=== PATIENT | female | born 1955 | race Caucasian/White ===

== ENCOUNTER 2017-10-22 12:31 | Outpatient (CLI) | payer MEDICAID ==
[2017-10-22] VITALS (23 sets, daily range): BP systolic 82–124; BP diastolic 59–81
[~2017-10-22 12:31] MED LIST: ADV50100 IH; BUPR150T13; CLA10T PO; CLOP75TA35 PO; DULO-31 PO; FOLI-43 PO; GABA-338 PO; HYDR-565 PO; INSU100V13 SQ; LANTUS SUBCUT; LEVA15HF4 IH; LEVO100T46 PO; MOME17SP BOTHNARES; ONDA4TAB6 PO; PROTONIX; ROSU20TA PO; TOP100T PO
== END 2017-10-22 23:59 | disposition home or self-care (01) ==
LOC: CARD DIAG 12:31
PROVIDERS: ATTEND Internal Medicine Cardiovascular Disease
DX: R55 Syncope and collapse (principal)
CPT/HCPCS: 93660

== ENCOUNTER 2018-02-28 14:32 | Emergency (ER) | payer MEDICAID ==
[~2018-02-28] VITALS: Ht 154.9 cm; Wt 68.9 kg
[2018-02-28 14:38] VITALS: BP 126/57
== END 2018-02-28 16:21 | disposition left against medical advice (07) ==
LOC: ER 14:33
DX: S20.211A Contusion of right front wall of thorax, initial encounter (principal); Z53.21 Procedure and treatment not carried out due to patient leaving prior to being seen by health care provider; W17.89XA Other fall from one level to another, initial encounter; Y93.89 Activity, other specified; Y92.89 Other specified places as the place of occurrence of the external cause; Y99.8 Other external cause status

== ENCOUNTER 2018-03-12 13:17 | Emergency (ER) | payer MEDICAID ==
[~2018-03-12] VITALS: Ht 154.9 cm; Wt 68.2 kg
[2018-03-12 13:54] LABS: BASOPHILS # (AUTO) 0.1 X10'3 (0-0.2); BASOPHILS % (AUTO) 0.9 % (0-1); EOSINOPHILS # (AUTO) 0.5 X10'3 (0-0.9); EOSINOPHILS % (AUTO) 4.4 % (0-6); HEMATOCRIT 45.4 % (35.0-45.0); HEMOGLOBIN 15.1 g/dl (12.0-16.0); LYMPHOCYTES # (AUTO) 3.4 X10'3 (1.1-4.8); MEAN CORPUSCULAR HEMOGLOBIN 27.9 PG (27.0-31.0); MEAN CORPUSCULAR HGB CONC 33.3 % (33.0-36.5); MEAN CORPUSCULAR VOLUME 83.6 FL (78-98); MEAN PLATELET VOLUME 8.3 FL (7.4-10.4); MONOCYTES # (AUTO) 0.8 X10'3 (0-0.9); MONOCYTES % (AUTO) 7.5 % (2-12); NEUTROPHILS # (AUTO) 5.6 X10'3 (1.8-7.7); NEUTROPHILS % (AUTO) 54.2 % (42-75); PLATELET COUNT 289 X10'3 (140-440); RED BLOOD COUNT 5.43 X10'6 (4.20-5.60); RED CELL DISTRIBUTION WIDTH 14.4 % (11.5-14.5); WHITE BLOOD COUNT 10.3 X10'3 (4.5-11.0)
[2018-03-12] MEDS ORDERED: ketorolac trometh. 30mg/ml inj. IM ONE (13:55)
[2018-03-12] MEDS ORDERED: oxyCODONE/APAP 10/325mg tablet PO ONE ×2 (13:55→14:15)
[2018-03-12 14:04] LABS: PARTIAL THROMBOPLASTIN TIME 26 SECONDS (22-32); PROTHROMBIN TIME 10.4 SECONDS (9.0-12.0)
[2018-03-12 14:08] LABS: ALANINE AMINOTRANSFERASE 15 U/L (12-78); ALBUMIN 3.8 G/DL (3.4-5.0); ALBUMIN/GLOBULIN RATIO 0.9 (1.1-1.5); ALKALINE PHOSPHATASE 131 IU/L (46-116); ANION GAP 10 (8-16); ASPARTATE AMINO TRANSFERASE 14 U/L (10-37); BILIRUBIN,TOTAL 0.5 MG/DL (0.1-1.0); BLOOD UREA NITROGEN 10 MG/DL (7-18); BUN/CREATININE RATIO 7.6 (6.6-38.0); CALCIUM 9.3 MG/DL (8.5-10.1); CHLORIDE 102 MMOL/L (99-107); CREATININE 1.31 MG/DL (0.40-0.90); GLUCOSE 171 MG/DL (70-104); POTASSIUM 4.2 MMOL/L (3.5-5.1); SODIUM 136 MMOL/L (135-145); TOTAL CARBON DIOXIDE 24.2 MMOL/L (24-32); TOTAL PROTEIN 8.1 G/DL (6.4-8.2); eGFR 41 ML/MIN
[2018-03-12 15:46] VITALS: BP 108/74
== END 2018-03-12 16:13 | disposition home or self-care (01) ==
LOC: ER 13:18
DX: R07.89 Other chest pain (principal); I25.10 Atherosclerotic heart disease of native coronary artery without angina pectoris; M85.80 Other specified disorders of bone density and structure, unspecified site; E78.00 Pure hypercholesterolemia, unspecified; K21.9 Gastro-esophageal reflux disease without esophagitis; E11.9 Type 2 diabetes mellitus without complications; E03.9 Hypothyroidism, unspecified; G89.29 Other chronic pain; Z90.49 Acquired absence of other specified parts of digestive tract; Z90.710 Acquired absence of both cervix and uterus; Z79.4 Long term (current) use of insulin; Z79.899 Other long term (current) drug therapy
CPT/HCPCS: 36415; 71045; 71250; 80053; 84484; 85025; 85610; 85730; 93005; 96372; 99285; J1885

== ENCOUNTER 2018-05-19 20:11 | Emergency (ER) | payer MEDICAID ==
[~2018-05-19] VITALS: Ht 154.9 cm; Wt 31.3 kg
[~2018-05-19 20:11] MED LIST changes: +HYDR-4353 PO; -HYDR-565 PO
[2018-05-19] MEDS ORDERED: HYDROmorphone 2mg tablet PO ONE (20:40)
[2018-05-19] MEDS ORDERED: HYDR-4353 PO (20:58)
[2018-05-19 21:28] VITALS: BP 142/69
== END 2018-05-20 | disposition home or self-care (01) ==
LOC: ER 05-20 01:03
DX: S62.316A Displaced fracture of base of fifth metacarpal bone, right hand, initial encounter for closed fracture (principal); S80.212A Abrasion, left knee, initial encounter; E78.00 Pure hypercholesterolemia, unspecified; K21.9 Gastro-esophageal reflux disease without esophagitis; E11.9 Type 2 diabetes mellitus without complications; F32.9 Major depressive disorder, single episode, unspecified; Z90.49 Acquired absence of other specified parts of digestive tract; Z90.710 Acquired absence of both cervix and uterus; Z79.899 Other long term (current) drug therapy; Z79.4 Long term (current) use of insulin; W10.9XXA Fall (on) (from) unspecified stairs and steps, initial encounter; Y93.89 Activity, other specified; Y92.240 Courthouse as the place of occurrence of the external cause; Y99.8 Other external cause status
CPT/HCPCS: 29125; 70450; 73130; 99284

== ENCOUNTER 2018-05-26 14:18 | Outpatient (CLI) | payer MEDICAID ==
[2018-05-26 14:45] VITALS: BP 114/72
== END 2018-05-26 15:29 | disposition home or self-care (01) ==
LOC: ORTHO 14:18
PROVIDERS: ATTEND Nurse Practitioner Family
DX: S62.316A Displaced fracture of base of fifth metacarpal bone, right hand, initial encounter for closed fracture (principal); I10 Essential (primary) hypertension; J45.909 Unspecified asthma, uncomplicated; E11.9 Type 2 diabetes mellitus without complications; Z79.4 Long term (current) use of insulin; W18.39XA Other fall on same level, initial encounter; Y93.89 Activity, other specified; Y92.89 Other specified places as the place of occurrence of the external cause; Y99.8 Other external cause status
CPT/HCPCS: 99213

== ENCOUNTER 2018-06-14 13:17 | Emergency (ER) | payer MEDICAID ==
[~2018-06-14] VITALS: Ht 154.9 cm; Wt 70.0 kg
[2018-06-14 13:38] VITALS: BP 119/71
[2018-06-14] MEDS ORDERED: ketorolac tromethamine 15mg/ml inj. IM ONE (15:00)
[2018-06-14] MEDS ORDERED: HYDROcodone/acetaminophen 10/325mg tab PO ONE (15:30)
[2018-06-14] MEDS ORDERED: oxyCODONE/APAP 10/325mg tablet PO ONE (15:35)
== END 2018-06-14 15:53 | disposition home or self-care (01) ==
LOC: ER 13:18
DX: R07.81 Pleurodynia (principal); E78.00 Pure hypercholesterolemia, unspecified; J45.909 Unspecified asthma, uncomplicated; K21.9 Gastro-esophageal reflux disease without esophagitis; E11.9 Type 2 diabetes mellitus without complications; E03.9 Hypothyroidism, unspecified; G89.29 Other chronic pain; Z90.49 Acquired absence of other specified parts of digestive tract; Z90.710 Acquired absence of both cervix and uterus; Z98.890 Other specified postprocedural states; Z79.4 Long term (current) use of insulin; Z79.899 Other long term (current) drug therapy; Z79.01 Long term (current) use of anticoagulants
CPT/HCPCS: 71046; 96372; 99284; J1885

== ENCOUNTER 2018-06-17 14:05 | Outpatient (CLI) | payer MEDICAID ==
[2018-06-17 14:08] VITALS: BP 96/66
== END 2018-06-17 14:30 | disposition home or self-care (01) ==
LOC: ORTHO 14:05
PROVIDERS: ATTEND Nurse Practitioner Family
DX: S62.316G Displaced fracture of base of fifth metacarpal bone, right hand, subsequent encounter for fracture with delayed healing (principal); I10 Essential (primary) hypertension; J45.909 Unspecified asthma, uncomplicated; E11.9 Type 2 diabetes mellitus without complications; F17.200 Nicotine dependence, unspecified, uncomplicated; Z98.890 Other specified postprocedural states; Z79.899 Other long term (current) drug therapy; W18.39XD Other fall on same level, subsequent encounter
CPT/HCPCS: 73130

== ENCOUNTER 2018-07-08 13:42 | Outpatient (CLI) | payer MEDICAID ==
[2018-07-08 13:45] VITALS: BP 98/64
== END 2018-07-08 14:16 | disposition home or self-care (01) ==
LOC: ORTHO 13:42
PROVIDERS: ATTEND Nurse Practitioner Family
DX: S62.316G Displaced fracture of base of fifth metacarpal bone, right hand, subsequent encounter for fracture with delayed healing (principal); I10 Essential (primary) hypertension; E11.9 Type 2 diabetes mellitus without complications; J45.909 Unspecified asthma, uncomplicated; Z79.4 Long term (current) use of insulin; W19.XXXD Unspecified fall, subsequent encounter
CPT/HCPCS: 73130; 99213

== ENCOUNTER 2018-09-21 16:44 | Emergency (ER) | payer MEDICAID ==
[~2018-09-21] VITALS: Ht 154.9 cm; Wt 71.8 kg
[2018-09-21 17:05] VITALS: BP 164/65
[2018-09-21] MEDS ORDERED: oxyCODONE/APAP 10/325mg tablet PO ONE (17:30)
[2018-09-21] MEDS ORDERED: OXYC-150 PO (17:41)
== END 2018-09-21 17:54 | disposition home or self-care (01) ==
LOC: ER 16:45
DX: M79.631 Pain in right forearm (principal); M25.531 Pain in right wrist; E78.00 Pure hypercholesterolemia, unspecified; J45.909 Unspecified asthma, uncomplicated; K21.9 Gastro-esophageal reflux disease without esophagitis; E11.9 Type 2 diabetes mellitus without complications; E03.9 Hypothyroidism, unspecified; G89.29 Other chronic pain; Z79.899 Other long term (current) drug therapy; Z86.73 Personal history of transient ischemic attack (TIA), and cerebral infarction without residual deficits; Z86.718 Personal history of other venous thrombosis and embolism; Z90.710 Acquired absence of both cervix and uterus; Z90.49 Acquired absence of other specified parts of digestive tract; Z90.5 Acquired absence of kidney; W10.8XXA Fall (on) (from) other stairs and steps, initial encounter; Y93.89 Activity, other specified; Y92.89 Other specified places as the place of occurrence of the external cause; Y99.8 Other external cause status
CPT/HCPCS: 29125; 73090; 99284

== ENCOUNTER 2018-09-30 09:25 | Outpatient (CLI) | payer MEDICAID ==
[2018-09-30 09:13] VITALS: BP 116/77
[~2018-09-30 09:25] MED LIST changes: +OXYC-150 PO
== END 2018-09-30 09:59 | disposition home or self-care (01) ==
LOC: ORTHO 09:25
PROVIDERS: ATTEND Nurse Practitioner Family
DX: S52.591A Other fractures of lower end of right radius, initial encounter for closed fracture (principal); S52.611A Displaced fracture of right ulna styloid process, initial encounter for closed fracture; M25.521 Pain in right elbow; M79.89 Other specified soft tissue disorders; M19.031 Primary osteoarthritis, right wrist; I10 Essential (primary) hypertension; E11.9 Type 2 diabetes mellitus without complications; J45.909 Unspecified asthma, uncomplicated; Z79.4 Long term (current) use of insulin; Z87.891 Personal history of nicotine dependence; W01.0XXA Fall on same level from slipping, tripping and stumbling without subsequent striking against object, initial encounter; Y93.89 Activity, other specified; Y92.89 Other specified places as the place of occurrence of the external cause; Y99.8 Other external cause status
CPT/HCPCS: 73080; 73110; 99213; A4590

== ENCOUNTER 2018-10-14 14:40 | Outpatient (CLI) | payer MEDICAID ==
[2018-10-14 14:16] VITALS: BP 114/71
[~2018-10-14 14:40] MED LIST changes: -ROSU20TA PO; +ROSU20TA2 PO
== END 2018-10-14 14:48 | disposition home or self-care (01) ==
LOC: ORTHO 14:40
PROVIDERS: ATTEND Nurse Practitioner Family
DX: S52.591G Other fractures of lower end of right radius, subsequent encounter for closed fracture with delayed healing (principal); S52.614G Nondisplaced fracture of right ulna styloid process, subsequent encounter for closed fracture with delayed healing; E78.00 Pure hypercholesterolemia, unspecified; I10 Essential (primary) hypertension; J45.909 Unspecified asthma, uncomplicated; K21.9 Gastro-esophageal reflux disease without esophagitis; E11.9 Type 2 diabetes mellitus without complications; F32.9 Major depressive disorder, single episode, unspecified; Z79.899 Other long term (current) drug therapy; W01.0XXD Fall on same level from slipping, tripping and stumbling without subsequent striking against object, subsequent encounter
CPT/HCPCS: 73110; 99213; A4590

== ENCOUNTER 2018-10-16 10:57 | Outpatient (CLI) | payer MEDICAID | END 2018-10-16 11:09 | disposition home or self-care (01) | LOC: ORTHO 10:57 | PROVIDERS: ATTEND Nurse Practitioner Family | DX: S52.591G Other fractures of lower end of right radius, subsequent encounter for closed fracture with delayed healing (principal); S52.614G Nondisplaced fracture of right ulna styloid process, subsequent encounter for closed fracture with delayed healing; I10 Essential (primary) hypertension; E78.00 Pure hypercholesterolemia, unspecified; J45.909 Unspecified asthma, uncomplicated; K21.9 Gastro-esophageal reflux disease without esophagitis; E11.9 Type 2 diabetes mellitus without complications; Z98.890 Other specified postprocedural states; Z79.899 Other long term (current) drug therapy; W01.0XXD Fall on same level from slipping, tripping and stumbling without subsequent striking against object, subsequent encounter | CPT/HCPCS: 99213; A4590 ==

== ENCOUNTER 2018-11-04 15:27 | Outpatient (CLI) | payer MEDICAID ==
[2018-11-04 15:28] VITALS: BP 90/59
== END 2018-11-04 16:45 | disposition home or self-care (01) ==
LOC: ORTHO 15:27
PROVIDERS: ATTEND Orthopaedic Surgery
DX: S52.591D Other fractures of lower end of right radius, subsequent encounter for closed fracture with routine healing (principal); I10 Essential (primary) hypertension; J45.909 Unspecified asthma, uncomplicated; E11.9 Type 2 diabetes mellitus without complications; Z90.710 Acquired absence of both cervix and uterus; X58.XXXD Exposure to other specified factors, subsequent encounter
CPT/HCPCS: 73110; 99213

== ENCOUNTER 2018-12-04 16:20 | Outpatient (CLI) | payer MEDICAID | END 2018-12-04 23:59 | disposition home or self-care (01) | LOC: RAD 16:20 | PROVIDERS: ATTEND Family Medicine | DX: S52.591D Other fractures of lower end of right radius, subsequent encounter for closed fracture with routine healing (principal); M19.031 Primary osteoarthritis, right wrist; X58.XXXD Exposure to other specified factors, subsequent encounter | CPT/HCPCS: 73110 ==

== ENCOUNTER 2020-05-04 11:13 | Day surgery (SDC) | payer BC, MEDICAID ==
[~2020-05-04] VITALS: Ht 154.9 cm; Wt 62.6 kg
[2020-05-04] VITALS (9 sets, daily range): BP systolic 100–123; BP diastolic 52–74
[2020-05-04] MEDS ORDERED: MIDAZolam 1mg/ml 10ml vial IV ONE (11:40)
[2020-05-04] MEDS ORDERED: fentaNYL/PF 50MCG/1 ML 2ML syringe IV ONE (11:40)
[2020-05-04] MEDS ORDERED: normal saline 1000ml 1,000 ML IV PRN (11:40)
[2020-05-04] MEDS ORDERED: FAMO40TA58 PO (12:48)
[2020-05-04 13:15] LABS: BASOPHILS # (AUTO) 0.1 X10'3 (0-0.2); EOSINOPHILS # (AUTO) 0.2 X10'3 (0-0.9); EOSINOPHILS % (AUTO) 2.7 % (0-6); HEMATOCRIT 39.6 % (35.0-45.0); HEMOGLOBIN 13.4 g/dl (12.0-16.0); LYMPHOCYTES # (AUTO) 3.7 X10'3 (1.1-4.8); LYMPHOCYTES % (AUTO) 40.1 % (21-51); MEAN CORPUSCULAR HEMOGLOBIN 28.7 PG (27.0-31.0); MEAN CORPUSCULAR HGB CONC 33.7 g/dL (33.0-36.5); MEAN CORPUSCULAR VOLUME 85.1 FL (78-98); MONOCYTES # (AUTO) 0.8 X10'3 (0-0.9); MONOCYTES % (AUTO) 8.5 % (2-12); NEUTROPHILS # (AUTO) 4.4 X10'3 (1.8-7.7); NEUTROPHILS % (AUTO) 47.7 % (42-75); PLATELET COUNT 187 X10'3 (140-440); RED BLOOD COUNT 4.65 X10'6 (4.20-5.60); RED CELL DISTRIBUTION WIDTH 14.5 % (11.5-14.5); WHITE BLOOD COUNT 9.2 X10'3 (4.5-11.0)
[2020-05-04] MEDS ORDERED: pneumococcal 23-VAL P-sac vacc 25 mcg/0.5ml vial IMVAC ONE (14:00)
[2020-05-04] MEDS ORDERED: FLU VACC QS2020-21(6MOS UP)/PF 60 MCG/0.5 ML SYRINGE IMVAC ONE (14:00)
[2020-05-04] MEDS ORDERED: fentaNYL/PF 50MCG/1 ML 2ML syringe ONE (14:58)
[2020-05-04] MEDS ORDERED: midazolam 2 mg/2 ml injection ONE ×2 (14:58→15:10)
[2020-05-04] MEDS ORDERED: gelatin sponge, absorbable (Gelfoam 12-7MM) sponge TP ONE (15:34)
[2020-05-04] MEDS ORDERED: HYDROcodone/acetaminophen 5mg/325mg tablet PO PRN (16:00)
== END 2020-05-04 18:45 | disposition home or self-care (01) ==
LOC: SSTAY O 11:13
PROVIDERS: ATTEND Radiology Vascular & Interventional Radiology
DX: K76.89 Other specified diseases of liver (principal); K74.0 Hepatic fibrosis; Z90.5 Acquired absence of kidney; Z86.73 Personal history of transient ischemic attack (TIA), and cerebral infarction without residual deficits; Z85.528 Personal history of other malignant neoplasm of kidney; Z90.710 Acquired absence of both cervix and uterus; Z90.49 Acquired absence of other specified parts of digestive tract; Z98.890 Other specified postprocedural states; Z23 Encounter for immunization
CPT/HCPCS: 36415; 47000; 76942; 82948; 85025; 85610; 88341; 88342; 90732; 99152; 99153; G0008; G0009; J2250; J3010; Q2039; 88307; 88313

== ENCOUNTER 2020-05-16 08:56 | Day surgery (SDC) | payer BC, MEDICAID ==
[~2020-05-16] VITALS: Ht 154.9 cm; Wt 62.7 kg
[2020-05-16] VITALS (19 sets, daily range): BP systolic 89–162; BP diastolic 52–153
[~2020-05-16 08:56] MED LIST changes: +FAMO40TA58 PO; -ONDA4TAB6 PO; -OXYC-150 PO; -PROTONIX
[2020-05-16] MEDS ORDERED: normal saline 1000ml 1,000 ML IV SCH (09:25)
[2020-05-16 09:36] LABS: BASOPHILS # (AUTO) 0.1 X10'3 (0-0.2); BASOPHILS % (AUTO) 0.6 % (0-1); EOSINOPHILS # (AUTO) 0.3 X10'3 (0-0.9); EOSINOPHILS % (AUTO) 2.4 % (0-6); HEMATOCRIT 40.9 % (35.0-45.0); HEMOGLOBIN 13.8 g/dl (12.0-16.0); LYMPHOCYTES # (AUTO) 3.3 X10'3 (1.1-4.8); MEAN CORPUSCULAR HEMOGLOBIN 28.8 PG (27.0-31.0); MEAN CORPUSCULAR HGB CONC 33.6 g/dL (33.0-36.5); MEAN CORPUSCULAR VOLUME 85.5 FL (78-98); MEAN PLATELET VOLUME 9.3 FL (7.4-10.4); MONOCYTES % (AUTO) 9.6 % (2-12); NEUTROPHILS # (AUTO) 6.2 X10'3 (1.8-7.7); NEUTROPHILS % (AUTO) 57.4 % (42-75); PLATELET COUNT 198 X10'3 (140-440); RED BLOOD COUNT 4.78 X10'6 (4.20-5.60); RED CELL DISTRIBUTION WIDTH 14.2 % (11.5-14.5); WHITE BLOOD COUNT 10.9 X10'3 (4.5-11.0)
[2020-05-16] MEDS ORDERED: ATOR40TA PO (09:56)
[2020-05-16] MEDS ORDERED: MAGN500C16 PO (09:56)
[2020-05-16] MEDS ORDERED: LOSA25TA96 PO (09:56)
[2020-05-16] MEDS ORDERED: FLUT9.9S (09:56)
[2020-05-16] MEDS ORDERED: ZOLP5TAB8 PO (09:56)
[2020-05-16] MEDS ORDERED: BIMA2.5D OP (09:56)
[2020-05-16] MEDS ORDERED: CYAN500T64 PO (09:56)
[2020-05-16] MEDS ORDERED: MONT10TA21 (09:56)
[2020-05-16] MEDS ORDERED: LEVO137T2 PO (09:56)
[2020-05-16] MEDS ORDERED: BUDE90AE (09:56)
[2020-05-16] MEDS ORDERED: LOPE-190 (09:56)
[2020-05-16] MEDS ORDERED: MV-M1TAB19 PO (09:56)
[2020-05-16] MEDS ORDERED: midazolam 2 mg/2 ml injection ONE (11:55)
[2020-05-16] MEDS ORDERED: fentaNYL/PF 50MCG/1 ML 2ML syringe ONE (11:55)
[2020-05-16] MEDS ORDERED: gelatin sponge, absorbable (Gelfoam 12-7MM) sponge TP ONE (12:54)
== END 2020-05-16 17:00 | disposition home or self-care (01) ==
LOC: SSTAY O 08:56
PROVIDERS: ATTEND Radiology Vascular & Interventional Radiology
DX: K76.89 Other specified diseases of liver (principal); C22.8 Malignant neoplasm of liver, primary, unspecified as to type; Z79.01 Long term (current) use of anticoagulants; Z79.899 Other long term (current) drug therapy; Z90.710 Acquired absence of both cervix and uterus; Z90.49 Acquired absence of other specified parts of digestive tract; Z98.890 Other specified postprocedural states; Z90.5 Acquired absence of kidney; Z79.4 Long term (current) use of insulin; Z85.53 Personal history of malignant neoplasm of renal pelvis
CPT/HCPCS: 36415; 47000; 77012; 85025; 99152; 99153; J2250; J3010

== ENCOUNTER 2020-10-20 17:30 | Emergency (ER) | payer BC, MEDICAID ==
[~2020-10-20] VITALS: Ht 154.9 cm; Wt 56.8 kg
[~2020-10-20 17:30] MED LIST changes: -ADV50100 IH; +ATOR40TA PO; +BIMA2.5D OP; +BUDE90AE; -CLA10T PO; +CLOP75TA34 PO; -CLOP75TA35 PO; +CYAN500T71 PO; -DULO-31 PO; +FLUT9.9S; -FOLI-43 PO; -LEVO100T46 PO; +LEVO137T2 PO; +LOPE-190; +LOSA25TA96 PO; +MAGN500C16 PO; -MOME17SP BOTHNARES; +MONT10TA21; +MV-M1TAB19 PO; -ROSU20TA2 PO; -TOP100T PO; +ZOLP5TAB8 PO
[2020-10-20] MEDS ORDERED: HYDROcodone/acetaminophen 5mg/325mg tablet PO ONE (20:15)
--- NOTE | 2020-10-20 20:30 | NUR ---
Pt instructed on cructhes use demostarted safe useage . pt also instructed on how to put on and remove left foot boot .
[2020-10-20 21:07] VITALS: BP 111/71
== END 2020-10-20 20:55 | disposition home or self-care (01) ==
LOC: ER 17:31
DX: M79.672 Pain in left foot (principal); Z86.73 Personal history of transient ischemic attack (TIA), and cerebral infarction without residual deficits; Z85.9 Personal history of malignant neoplasm, unspecified; Z90.49 Acquired absence of other specified parts of digestive tract; Z90.710 Acquired absence of both cervix and uterus; Z98.890 Other specified postprocedural states; Z79.4 Long term (current) use of insulin; Z79.899 Other long term (current) drug therapy
CPT/HCPCS: 73630; 99284

== ENCOUNTER 2021-05-05 20:04 | Emergency (ER) | payer BC, MEDICAID ==
[~2021-05-05] VITALS: Ht 154.9 cm; Wt 62.3 kg
[2021-05-05 20:28] VITALS: BP 130/69
== END 2021-05-05 21:50 | disposition left against medical advice (07) ==
LOC: ER 20:04
DX: R07.89 Other chest pain (principal); Z53.21 Procedure and treatment not carried out due to patient leaving prior to being seen by health care provider
CPT/HCPCS: 93005

== ENCOUNTER 2022-04-13 22:58 | Emergency (ER) | payer BC, MEDICAID ==
[~2022-04-13] VITALS: Ht 157.5 cm; Wt 68.2 kg
[~2022-04-13 22:58] MED LIST changes: +BUPR-73; -BUPR150T13; -MAGN500C16 PO; +MAGN500C4 PO
[2022-04-14] MEDS ORDERED: normal saline 1000ml 1,000 ML IV ONE (02:05)
[2022-04-14] MEDS ORDERED: normal saline 1000ML IV soln IVB ONE (02:05)
[2022-04-14 03:32] LABS: BASOPHILS % (AUTO) 0.5 % (0-1); EOSINOPHILS # (AUTO) 0.5 X10'3 (0-0.9); EOSINOPHILS % (AUTO) 8.8 % (0-6); HEMATOCRIT 25.5 % (35.0-45.0); HEMOGLOBIN 8.3 g/dl (12.0-16.0); LYMPHOCYTES # (AUTO) 1.7 X10'3 (1.1-4.8); LYMPHOCYTES % (AUTO) 27.9 % (21-51); MEAN CORPUSCULAR HEMOGLOBIN 28.5 PG (27.0-31.0); MEAN CORPUSCULAR HGB CONC 32.3 g/dL (33.0-36.5); MEAN CORPUSCULAR VOLUME 88.1 FL (78-98); MEAN PLATELET VOLUME 7.9 FL (7.4-10.4); MONOCYTES # (AUTO) 0.7 X10'3 (0-0.9); MONOCYTES % (AUTO) 11.3 % (2-12); NEUTROPHILS # (AUTO) 3.1 X10'3 (1.8-7.7); NEUTROPHILS % (AUTO) 51.5 % (42-75); PLATELET COUNT 104 X10'3 (140-440); RED CELL DISTRIBUTION WIDTH 17.2 % (11.5-14.5)
[2022-04-14 03:37] LABS: ALANINE AMINOTRANSFERASE 47 U/L (12-78); ALBUMIN 3.8 G/DL (3.4-5.0); ALKALINE PHOSPHATASE 144 IU/L (46-116); ANION GAP 10 (8-16); ASPARTATE AMINO TRANSFERASE 36 U/L (10-37); BILIRUBIN,TOTAL 3.4 MG/DL (0.1-1.0); BLOOD UREA NITROGEN 20 MG/DL (7-18); BUN/CREATININE RATIO 12.6 (6.6-38.0); CALCIUM 9.1 MG/DL (8.5-10.1); CHLORIDE 100 MMOL/L (99-107); CREATININE 1.59 MG/DL (0.40-0.90); GLUCOSE 138 MG/DL (70-104); LIPASE 63 U/L (73-393); MAGNESIUM 1.5 MG/DL (1.5-2.4); POTASSIUM 3.7 MMOL/L (3.5-5.1); SODIUM 140 MMOL/L (135-145); TOTAL CARBON DIOXIDE 30.3 MMOL/L (24-32); TOTAL PROTEIN 5.7 G/DL (6.4-8.2); eGFR 32 ML/MIN
[2022-04-14 03:38] LABS: ETHANOL < 0.010 GM/DL (0.0-0.010)
[2022-04-14] MEDS ORDERED: octreotide 100mcg/1 ml ampule IV ONE (03:55)
[2022-04-14] MEDS ORDERED: pantoprazole 40MG/NS 100ML BAG 100 ML IV ONE (03:55)
[2022-04-14] MEDS ORDERED: pantoprazole IV 80 MG in normal saline 100ml IV soln 100 ML IV ONE (03:55)
[2022-04-14] MEDS ORDERED: octreotide inj. 1,250 MCG in normal saline 250ml IV soln 250 ML IV ONE (03:55)
[2022-04-14] MEDS ORDERED: tranexamic acid 1gm/0.7% sal. 100 ML IV ONE (03:55)
[2022-04-14 06:56] VITALS: BP 105/54
[2022-04-14 08:45] LABS: CLARITY,URINE SLIGHTLY CLOUDY (Clear); GLUCOSE, URINE NEGATIVE (Neg); KETONES,URINE NEGATIVE (Neg); LEUKOCYTE ESTERASE ,URINE SMALL (Neg); NITRITES, URINE NEGATIVE (Neg); OCCULT BLOOD,URINE TRACE-INTACT (Neg); PROTEIN,URINE 100 mg/dl (Neg); UROBILINOGEN,URINE >=8.0 E.U/dL (0.2-1.0)
[2022-04-14 08:49] LABS: COLOR,URINE DARK YELLOW (Yellow); UA COLLECTION TYPE CLN CATCH MIDSTREAM
--- NOTE | 2022-04-14 08:50 | NUR ---
PT WANTING TO LEAVE AND INSISTING TO HER DAUGHTER TO TAKE HER HOME. REQUESTED PT AND FAMILY TO WAIT TILL PT CAN BE TALKED TO BY AZUCENA MASCORRO.
[2022-04-14 08:53] LABS: BACTERIA,URINE 1+ /HPF (Neg); FINE GRANULAR CAST 0-3 /LPF (NEGATIVE); MUCUS STRANDS NONE SEEN /LPF (Neg); RBC,URINE 0-2 /HPF (0-2); SQUAMOUS EPITHELIAL CELL,UR MODERATE /LPF (FEW); TRANSITIONAL EPI CELLS,URINE FEW /HPF; YEAST FEW /HPF (NEGATIVE)
[2022-04-14 08:54] LABS: WBC CLUMPS,URINE FEW /HPF (NEGATIVE)
--- NOTE | 2022-04-14 09:10 | NUR ---
MD DR. LENNON INFORMED PT HAD BECOME INPATIENT AND UNWILLING TO WAIT AND HAD LEFT WITH HER DAUGHTER. PTS DAUGHTER HAD SIGNED AMA PAPER AND WHEELED PT OUT AFTER IV REMOVAL.
[2022-04-14 10:41] LABS: URINE AMPHETAMINE SCREEN NEGATIVE (Neg); URINE BARBITUATE SCREEN NEGATIVE (Neg); URINE BENZODIAZEPINES SCREEN NEGATIVE (Neg); URINE CANNABINOID SCREEN NEGATIVE (Neg); URINE COCAINE SCREEN NEGATIVE (Neg); URINE METHADONE SCREEN NEGATIVE (Neg); URINE OPIATE SCREEN POSITIVE (Neg); URINE PHENCYCLIDINE SCREEN NEGATIVE (Neg)
== END 2022-04-14 09:53 | disposition left against medical advice (07) ==
LOC: ER 22:59
DX: R41.82 Altered mental status, unspecified (principal); Z90.49 Acquired absence of other specified parts of digestive tract; Z90.710 Acquired absence of both cervix and uterus; Z98.890 Other specified postprocedural states
CPT/HCPCS: 36415; 70450; 71045; 74176; 80053; 80305; 80320; 81001; 83690; 83735; 85025; 87088; 93005; 96360; 96361; 99285; J7030

== ENCOUNTER 2022-05-13 14:06 | Emergency (ER) | payer BC, MEDICAID ==
[~2022-05-13] VITALS: Ht 154.9 cm; Wt 63.6 kg
[2022-05-13 15:51] LABS: BASOPHILS # (AUTO) 0.1 X10'3 (0-0.2); BASOPHILS % (AUTO) 1.1 % (0-1); EOSINOPHILS # (AUTO) 0.6 X10'3 (0-0.9); EOSINOPHILS % (AUTO) 7.1 % (0-6); HEMATOCRIT 31.4 % (35.0-45.0); HEMOGLOBIN 10.5 g/dl (12.0-16.0); LYMPHOCYTES % (AUTO) 25.5 % (21-51); MEAN CORPUSCULAR HEMOGLOBIN 26.5 PG (27.0-31.0); MEAN CORPUSCULAR HGB CONC 33.5 g/dL (33.0-36.5); MEAN CORPUSCULAR VOLUME 79.2 FL (78-98); MONOCYTES # (AUTO) 0.8 X10'3 (0-0.9); MONOCYTES % (AUTO) 10.5 % (2-12); NEUTROPHILS # (AUTO) 4.4 X10'3 (1.8-7.7); NEUTROPHILS % (AUTO) 55.8 % (42-75); PLATELET COUNT 164 X10'3 (140-440); RED BLOOD COUNT 3.97 X10'6 (4.20-5.60); RED CELL DISTRIBUTION WIDTH 16.2 % (11.5-14.5)
[2022-05-13 16:04] LABS: ALANINE AMINOTRANSFERASE 23 U/L (12-78); ALBUMIN 2.5 G/DL (3.4-5.0); ALBUMIN/GLOBULIN RATIO 0.7 (1.1-1.5); ALKALINE PHOSPHATASE 180 IU/L (46-116); ANION GAP 6 (8-16); ASPARTATE AMINO TRANSFERASE 36 U/L (10-37); BILIRUBIN,TOTAL 1.2 MG/DL (0.1-1.0); BLOOD UREA NITROGEN 12 MG/DL (7-18); BUN/CREATININE RATIO 11.4 (6.6-38.0); CALCIUM 8.3 MG/DL (8.5-10.1); CHLORIDE 103 MMOL/L (99-107); CREATININE 1.05 MG/DL (0.40-0.90); GLUCOSE 297 MG/DL (70-104); LIPASE 70 U/L (73-393); POTASSIUM 3.9 MMOL/L (3.5-5.1); SODIUM 138 MMOL/L (135-145); TOTAL CARBON DIOXIDE 29.5 MMOL/L (24-32); eGFR 52 ML/MIN
[2022-05-13 18:29] LABS: CLARITY,URINE CLEAR (Clear); COLOR,URINE YELLOW (Yellow); GLUCOSE, URINE 500 mg/dl (Neg); KETONES,URINE TRACE mg/dl (Neg); LEUKOCYTE ESTERASE ,URINE NEGATIVE (Neg); NITRITES, URINE NEGATIVE (Neg); OCCULT BLOOD,URINE TRACE-INTACT (Neg); PROTEIN,URINE >=300 mg/dl (Neg)
[2022-05-13] MEDS ORDERED: morphine 4 MG/ML inj SYRINge IV ONE (18:35)
[2022-05-13] MEDS ORDERED: ondansetron/PF 4mg/2ml inj IV ONE (18:35)
[2022-05-13] MEDS ORDERED: iohexol 300mg/ml 100ml inj. ONE (18:42)
[2022-05-13 18:55] LABS: UA COLLECTION TYPE CLN CATCH MIDSTREAM
[2022-05-13 18:56] LABS: WBC,URINE 0-4 /HPF (0-4)
[2022-05-13 18:57] LABS: RBC,URINE 0-2 /HPF (0-2); SQUAMOUS EPITHELIAL CELL,UR MANY /LPF (FEW)
[2022-05-13 18:58] LABS: AMORPHOUS PHOSPHATES 1+; BACTERIA,URINE FEW /HPF (Neg)
[2022-05-13 18:59] LABS: CELLULAR CAST 0-4 /LPF (NEGATIVE); HYALINE CASTS 0-3 /LPF (NEGATIVE)
[2022-05-13] MEDS ORDERED: insulin regular, human 10 units/0.1 ml syringe IV ONE (19:05)
[2022-05-13] MEDS ORDERED: HYDR-3965 PO (19:43)
[2022-05-13] MEDS ORDERED: ketorolac trometh. 30mg/ml inj. IV ONE (19:50)
[2022-05-13] MEDS ORDERED: insulin regular, human 10 units/0.1 ml syringe IV STA (19:59)
[2022-05-13 20:06] VITALS: BP 156/76
== END 2022-05-13 20:13 | disposition home or self-care (01) ==
LOC: ER 14:06
DX: R10.84 Generalized abdominal pain (principal); Z86.73 Personal history of transient ischemic attack (TIA), and cerebral infarction without residual deficits; Z85.9 Personal history of malignant neoplasm, unspecified; Z90.49 Acquired absence of other specified parts of digestive tract; Z90.710 Acquired absence of both cervix and uterus; Z98.890 Other specified postprocedural states; Z79.4 Long term (current) use of insulin; Z79.899 Other long term (current) drug therapy
CPT/HCPCS: 36415; 74177; 80053; 81001; 82948; 83690; 85025; 96374; 96375; 99285; J1815; J1885; J2270; J2405; J3490; Q9967

== ENCOUNTER 2022-05-18 16:41 | Inpatient (IN) | payer BC, MEDICAID ==
[~2022-05-18] VITALS: Ht 157.5 cm; Wt 68.2 kg
[~2022-05-18 16:41] MED LIST changes: +BIMA2.5D EACHEYE; -BIMA2.5D OP; -BUDE90AE; +BUDE90AE IH; -FLUT9.9S; +FLUT9.9S NS; +HYDR-3965 PO
[2022-05-18 18:37] LABS: BASOPHILS # (AUTO) 0.2 X10'3 (0-0.2); BASOPHILS % (AUTO) 1.2 % (0-1); EOSINOPHILS # (AUTO) 0.3 X10'3 (0-0.9); EOSINOPHILS % (AUTO) 2.4 % (0-6); HEMATOCRIT 37.9 % (35.0-45.0); HEMOGLOBIN 12.2 g/dl (12.0-16.0); LYMPHOCYTES # (AUTO) 2.5 X10'3 (1.1-4.8); LYMPHOCYTES % (AUTO) 19.2 % (21-51); MEAN CORPUSCULAR HEMOGLOBIN 25.5 PG (27.0-31.0); MEAN CORPUSCULAR HGB CONC 32.2 g/dL (33.0-36.5); MEAN CORPUSCULAR VOLUME 79.1 FL (78-98); MEAN PLATELET VOLUME 7.7 FL (7.4-10.4); MONOCYTES % (AUTO) 7.6 % (2-12); NEUTROPHILS # (AUTO) 9.1 X10'3 (1.8-7.7); NEUTROPHILS % (AUTO) 69.6 % (42-75); PLATELET COUNT 275 X10'3 (140-440); RED CELL DISTRIBUTION WIDTH 16.8 % (11.5-14.5); WHITE BLOOD COUNT 13.1 X10'3 (4.5-11.0)
[2022-05-18 18:49] LABS: ALANINE AMINOTRANSFERASE 20 U/L (12-78); ALBUMIN 2.6 G/DL (3.4-5.0); ALBUMIN/GLOBULIN RATIO 0.7 (1.1-1.5); ALKALINE PHOSPHATASE 176 IU/L (46-116); ANION GAP 9 (8-16); ASPARTATE AMINO TRANSFERASE 39 U/L (10-37); BLOOD UREA NITROGEN 9 MG/DL (7-18); BUN/CREATININE RATIO 8.2 (6.6-38.0); CALCIUM 8.9 MG/DL (8.5-10.1); CHLORIDE 103 MMOL/L (99-107); GLUCOSE 109 MG/DL (70-104); SODIUM 137 MMOL/L (135-145); TOTAL CARBON DIOXIDE 24.8 MMOL/L (24-32); TOTAL PROTEIN 6.6 G/DL (6.4-8.2); eGFR 50 ML/MIN
[2022-05-19] MEDS ORDERED: HYDROcodone/acetaminophen 10/325mg tab PO ONE (01:20)
[2022-05-19 01:37] LABS: CLARITY,URINE SLIGHTLY CLOUDY (Clear); GLUCOSE, URINE NEGATIVE (Neg); KETONES,URINE 15 mg/dl (Neg); LEUKOCYTE ESTERASE ,URINE NEGATIVE (Neg); NITRITES, URINE NEGATIVE (Neg); OCCULT BLOOD,URINE SMALL (Neg); PH,URINE 5.5 (4.8-8.0); PROTEIN,URINE >=300 mg/dl (Neg)
[2022-05-19 01:39] LABS: COLOR,URINE AMBER (Yellow); UA COLLECTION TYPE CLN CATCH MIDSTREAM
[2022-05-19 01:54] LABS: HYALINE CASTS 0-3 /LPF (NEGATIVE)
[2022-05-19 01:55] LABS: RBC,URINE 0-2 /HPF (0-2); WBC,URINE 0-4 /HPF (0-4)
[2022-05-19 01:57] LABS: BACTERIA,URINE FEW /HPF (Neg); MUCUS STRANDS MANY /LPF (Neg); SQUAMOUS EPITHELIAL CELL,UR FEW /LPF (FEW)
[2022-05-19 01:58] LABS: TRANSITIONAL EPI CELLS,URINE MODERATE /HPF
[2022-05-19 05:54] LABS: LACTIC SEPSIS 2.7 MMOL/L (0.4-2.0)
[2022-05-19] MEDS ORDERED: normal saline 1000ML IV soln IVB ONE (06:00)
[2022-05-19] MEDS ORDERED: morphine 2 MG/ML inj. syringe IV ONE (07:05)
[2022-05-19] MEDS ORDERED: metoclopramide 5 mg/ml inj IV ONE (07:20)
[2022-05-19] MEDS ORDERED: diphenhydrAMINE 50 mg/ml inj IV ONE (07:20)
[2022-05-19 08:47] LABS: ETHANOL < 0.010 GM/DL (0.0-0.010); LIPASE < 50 U/L (73-393)
[2022-05-19] MEDS ORDERED: iohexol 300mg/ml 100ml inj. ONE (10:19)
[2022-05-19] MEDS ORDERED: dextrose 50%-water 50ml dispensing syringe IV PRN ×2 (10:25)
[2022-05-19] MEDS ORDERED: acetaminophen 325mg tablet PO PRN (10:25)
[2022-05-19] MEDS ORDERED: MESSAGE TO PHARMACY PO ONE (10:25)
[2022-05-19] MEDS ORDERED: POTASSIUM BICARB 20meq eff tab 20 MEQ TABLET.EFF PO PRN ×2 (10:25)
[2022-05-19] MEDS ORDERED: magnesium hydroxide 30ml (MOM) UD suspension PO PRN (10:25)
[2022-05-19] MEDS ORDERED: magnesium 2GM in 50ml NS 50 ML IV PRN (10:25)
[2022-05-19] MEDS ORDERED: glucagon, human recombinant 1mg kit SUBCUT PRN (10:25)
[2022-05-19] MEDS ORDERED: insulin Lispro (HumaLOG) vial - multi-dose SQ SCH (10:25)
[2022-05-19] MEDS ORDERED: DEXTROSE 15 GM of carb/4 tabs (each vial/BOTTLE has 4 tablets) PO PRN ×2 (10:25)
[2022-05-19] MEDS ORDERED: mag hydrox/Alum hydrox/simeth 30ml oral suspension PO PRN (10:25)
[2022-05-19] MEDS ORDERED: ondansetron/PF 4mg/2ml inj IV PRN (10:25)
[2022-05-19] MEDS ORDERED: magnesium 4gm in 100ml NS 100 ML IV PRN (10:25)
[2022-05-19] MEDS ORDERED: potassium CL 10mEq/100ml bag 100 ML IV PRN (10:25)
[2022-05-19 11:22] LABS: BASOPHILS # (AUTO) 0.1 X10'3 (0-0.2); BASOPHILS % (AUTO) 0.9 % (0-1); EOSINOPHILS # (AUTO) 0.3 X10'3 (0-0.9); EOSINOPHILS % (AUTO) 3.1 % (0-6); HEMATOCRIT 35.7 % (35.0-45.0); HEMOGLOBIN 11.7 g/dl (12.0-16.0); LYMPHOCYTES # (AUTO) 2.8 X10'3 (1.1-4.8); LYMPHOCYTES % (AUTO) 26.4 % (21-51); MEAN CORPUSCULAR HEMOGLOBIN 25.7 PG (27.0-31.0); MEAN CORPUSCULAR HGB CONC 32.8 g/dL (33.0-36.5); MEAN CORPUSCULAR VOLUME 78.5 FL (78-98); MEAN PLATELET VOLUME 7.9 FL (7.4-10.4); MONOCYTES # (AUTO) 0.8 X10'3 (0-0.9); NEUTROPHILS # (AUTO) 6.5 X10'3 (1.8-7.7); NEUTROPHILS % (AUTO) 61.6 % (42-75); PLATELET COUNT 183 X10'3 (140-440); RED BLOOD COUNT 4.55 X10'6 (4.20-5.60); WHITE BLOOD COUNT 10.5 X10'3 (4.5-11.0)
[2022-05-19 11:37] LABS: ALANINE AMINOTRANSFERASE 19 U/L (12-78); ALBUMIN 2.9 G/DL (3.4-5.0); ALBUMIN/GLOBULIN RATIO 0.7 (1.1-1.5); ALKALINE PHOSPHATASE 176 IU/L (46-116); ANION GAP 13 (8-16); ASPARTATE AMINO TRANSFERASE 37 U/L (10-37); BILIRUBIN,TOTAL 2.1 MG/DL (0.1-1.0); BLOOD UREA NITROGEN 16 MG/DL (7-18); BUN/CREATININE RATIO 13.2 (6.6-38.0); CHLORIDE 100 MMOL/L (99-107); CREATININE 1.21 MG/DL (0.40-0.90); GLUCOSE 132 MG/DL (70-104); SODIUM 137 MMOL/L (135-145); TOTAL CARBON DIOXIDE 24.4 MMOL/L (24-32); TOTAL PROTEIN 6.9 G/DL (6.4-8.2); eGFR 44 ML/MIN
[2022-05-19 11:54] LABS: HEMOGLOBIN A1C 6.3 % (4.5-6.2)
[2022-05-19] MEDS ORDERED: piperacillin/tazo 4.5gm/100ml 100 ML IV SCH (16:00)
--- NOTE | 2022-05-19 17:27 | NUR ---
Patient in room ED 13. I have received report from silvia ochoa ed and had the opportunity to ask questions and assume patient care.
--- NOTE | 2022-05-19 17:50 | NUR ---
pt came to surgical via wheelchair. Pt is not confused unable to respond to any questions other than she was cold. pt was put into bed, fluids turned on, pt accu checked and bladder scanned. 263 ml in bladder.
--- NOTE | 2022-05-19 18:20 | NUR ---
Patient in room [facility]. I have received report from Osiris MELVIN and had the opportunity to ask questions and assume patient care.
--- NOTE | 2022-05-19 18:34 | NUR ---
Problems reprioritized. Patient report given, questions answered & plan of care reviewed with wilda CARRANZA.
[2022-05-19] MEDS: normal saline 1000ml 1,000 ML IV SCH ×2 (18:59→20:25)
[2022-05-19] MEDS: K and/or MAG REPLACEMENT MC SCH (19:49)
[2022-05-19] MEDS: enoxaparin 40mg/0.4ml syringe SQ SCH (19:51)
[2022-05-19] MEDS: docusate sod 100mg capsule PO SCH (19:51)
[2022-05-19] MEDS: piperacillin/tazo 4.5gm/100ml 100 ML IV SCH (20:24)
[2022-05-19] MEDS ORDERED: insulin glargine (Lantus) pen - multi-dose SQ SCH (21:00)
--- NOTE | 2022-05-19 21:30 | NUR ---
Spoke to Dr. Meadows requesting orders for pain medication as the patient does not have an order for pain medication. Dr. Meadows told me to "Restart the home medications" however, the med req was not completed by the day shift/admitting doctor. I told him I can not restart any medications and need an order for the medications. He told me "Thank you" and hung up on me. I have not received any pain medication orders for the patient.
[2022-05-19 22:00] VITALS: BP 150/63
[2022-05-19] MEDS ORDERED: zolpidem 5mg tablet PO PRN (22:30)
[2022-05-19] MEDS ORDERED: non-formulary drug (Insulin Aspart (Novolog) 1 UNITS) SQ SCH (22:30)
[2022-05-20] MEDS: HYDROcodone/acetaminophen 10/325mg tab PO PRN ×4 (00:32→20:57)
[2022-05-20 02:00] VITALS: BP 154/64
[2022-05-20] MEDS: piperacillin/tazo 4.5gm/100ml 100 ML IV SCH ×3 (03:52→19:40)
[2022-05-20] MEDS: normal saline 1000ml 1,000 ML IV SCH ×2 (04:29→20:23)
[2022-05-20 06:00] VITALS: BP 151/63
--- NOTE | 2022-05-20 06:27 | NUR ---
Problems reprioritized. Patient report given, questions answered & plan of care reviewed with Angela MELVIN and Arianna CARRANZA.
--- NOTE | 2022-05-20 06:44 | NUR ---
Patient in room [facility]. I have received report from Cassie CARRANZA and had the opportunity to ask questions and assume patient care.
[2022-05-20] MEDS: levoTHYROXINE 25mcg tablet PO SCH (07:00)
[2022-05-20 07:28] LABS: BASOPHILS # (AUTO) 0.1 X10'3 (0-0.2); EOSINOPHILS # (AUTO) 0.4 X10'3 (0-0.9); EOSINOPHILS % (AUTO) 5.2 % (0-6); HEMATOCRIT 27.5 % (35.0-45.0); HEMOGLOBIN 8.8 g/dl (12.0-16.0); LYMPHOCYTES # (AUTO) 2.9 X10'3 (1.1-4.8); LYMPHOCYTES % (AUTO) 37.4 % (21-51); MEAN CORPUSCULAR HEMOGLOBIN 25.5 PG (27.0-31.0); MEAN CORPUSCULAR HGB CONC 32.2 g/dL (33.0-36.5); MEAN CORPUSCULAR VOLUME 79.1 FL (78-98); MEAN PLATELET VOLUME 7.8 FL (7.4-10.4); MONOCYTES # (AUTO) 0.8 X10'3 (0-0.9); MONOCYTES % (AUTO) 10.1 % (2-12); NEUTROPHILS # (AUTO) 3.6 X10'3 (1.8-7.7); NEUTROPHILS % (AUTO) 46.3 % (42-75); PLATELET COUNT 147 X10'3 (140-440); RED BLOOD COUNT 3.48 X10'6 (4.20-5.60); RED CELL DISTRIBUTION WIDTH 16.6 % (11.5-14.5); WHITE BLOOD COUNT 7.8 X10'3 (4.5-11.0)
--- NOTE | 2022-05-20 07:35 | NUR ---
patient refused all medication once they were all opened but gabapentin. All other medication was disposed into the pharmaceutical bin
[2022-05-20 07:37] LABS: ALANINE AMINOTRANSFERASE 15 U/L (12-78); ALBUMIN/GLOBULIN RATIO 0.6 (1.1-1.5); ALKALINE PHOSPHATASE 128 IU/L (46-116); ANION GAP 10 (8-16); ASPARTATE AMINO TRANSFERASE 34 U/L (10-37); BILIRUBIN,TOTAL 1.1 MG/DL (0.1-1.0); BLOOD UREA NITROGEN 15 MG/DL (7-18); BUN/CREATININE RATIO 13.6 (6.6-38.0); CALCIUM 7.4 MG/DL (8.5-10.1); CHLORIDE 107 MMOL/L (99-107); GLUCOSE 101 MG/DL (70-104); MAGNESIUM 1.9 MG/DL (1.5-2.4); POTASSIUM 3.6 MMOL/L (3.5-5.1); SODIUM 138 MMOL/L (135-145); TOTAL CARBON DIOXIDE 21.2 MMOL/L (24-32); TOTAL PROTEIN 5.1 G/DL (6.4-8.2); eGFR 50 ML/MIN
[2022-05-20] MEDS: levoTHYROXINE 112mcg tablet PO SCH (07:45)
[2022-05-20] MEDS: losartan 25mg tablet PO SCH (07:50)
[2022-05-20] MEDS: docusate sod 100mg capsule PO SCH ×2 (07:50→20:00)
[2022-05-20] MEDS: atorvastatin 20mg tablet PO SCH (07:52)
[2022-05-20] MEDS: multivitamins, therapeutics tablet PO SCH (07:52)
[2022-05-20] MEDS: cyanocobalamin 500mcg tablet PO SCH (07:52)
[2022-05-20] MEDS: buPROPion SR 150mg tablet PO SCH (07:53)
[2022-05-20] MEDS: clopidogrel 75mg tablet PO SCH (07:53)
[2022-05-20] MEDS: K and/or MAG REPLACEMENT MC SCH ×2 (07:54→20:00)
[2022-05-20] MEDS: budesonide 0.5mg/2ml UD nebule IH SCH ×2 (07:54→21:36)
[2022-05-20] MEDS ORDERED: famotidine 20mg tablet PO SCH ×2 (08:00→17:22)
[2022-05-20] MEDS: fluticasone nasal spray 16GM bottle NS SCH (08:00)
[2022-05-20] MEDS ORDERED: gabapentin 300mg capsule PO SCH (08:00)
[2022-05-20] MEDS ORDERED: HYDROcodone/acetaminophen 10/325mg tab PO SCH (08:00)
[2022-05-20] MEDS ORDERED: insulin glargine (Lantus) pen - multi-dose SQ SCH ×2 (08:00→21:00)
[2022-05-20] MEDS ORDERED: magnesium oxide 400mg tablet PO SCH (08:00)
--- NOTE | 2022-05-20 08:06 | NUR ---
PAGER ID: [phone] MESSAGE: [id number] Nan S: patient c/o pain and is yelling out. [place] 10 not effective. thanks, cristopher [phone]
[2022-05-20 10:00] VITALS: BP 132/59
--- NOTE | 2022-05-20 17:51 | NUR ---
TAILER OUT documentation: I have reviewed and agree with all interventions, assessments performed and documented by TERE Keller.
[2022-05-20 18:00] VITALS: BP 118/56
--- NOTE | 2022-05-20 18:30 | NUR ---
Patient in room [facility]. I have received report from Jessica MELVIN and Arianna Gray and had the opportunity to ask questions and assume patient care.
--- NOTE | 2022-05-20 18:31 | NUR ---
Problems reprioritized. Patient report given, questions answered & plan of care reviewed with Joelle MELVIN.
[2022-05-20] MEDS: enoxaparin 40mg/0.4ml syringe SQ SCH (20:13)
[2022-05-20] MEDS: gabapentin 300mg capsule PO SCH (20:14)
[2022-05-20] MEDS ORDERED: latanoprost 0.005% 2.5ml ophthalmic drops EACHEYE SCH (21:00)
[2022-05-20 22:00] VITALS: BP 132/64
--- NOTE | 2022-05-20 23:00 | NUR ---
Patient has just met protocol with Blood sugar of 247. Called NOC as the humalog and lantus had been cancelled earlier. said to reinstate it.
[2022-05-20] MEDS ORDERED: DEXTROSE 15 GM of carb/4 tabs (each vial/BOTTLE has 4 tablets) PO PRN ×4 (23:05)
[2022-05-20] MEDS ORDERED: dextrose 50%-water 50ml dispensing syringe IV PRN ×4 (23:05)
[2022-05-20] MEDS ORDERED: glucagon, human recombinant 1mg kit SUBCUT PRN ×2 (23:05)
[2022-05-20] MEDS ORDERED: MESSAGE TO PHARMACY PO ONE ×2 (23:05)
[2022-05-20] MEDS ORDERED: insulin Lispro (HumaLOG) vial - multi-dose SQ SCH (23:05)
[2022-05-20] MEDS: insulin Lispro (HumaLOG) vial - multi-dose SQ SCH (23:17)
[2022-05-21] MEDS: piperacillin/tazo 4.5gm/100ml 100 ML IV SCH ×2 (02:45→11:17)
[2022-05-21] MEDS: HYDROcodone/acetaminophen 10/325mg tab PO PRN (03:25)
[2022-05-21 05:54] LABS: BASOPHILS % (AUTO) 0.9 % (0-1); EOSINOPHILS # (AUTO) 0.4 X10'3 (0-0.9); EOSINOPHILS % (AUTO) 7.5 % (0-6); HEMATOCRIT 25.3 % (35.0-45.0); HEMOGLOBIN 8.1 g/dl (12.0-16.0); LYMPHOCYTES # (AUTO) 1.8 X10'3 (1.1-4.8); LYMPHOCYTES % (AUTO) 37.2 % (21-51); MEAN CORPUSCULAR HEMOGLOBIN 25.3 PG (27.0-31.0); MEAN CORPUSCULAR VOLUME 78.8 FL (78-98); MEAN PLATELET VOLUME 7.7 FL (7.4-10.4); MONOCYTES # (AUTO) 0.7 X10'3 (0-0.9); MONOCYTES % (AUTO) 13.7 % (2-12); NEUTROPHILS % (AUTO) 40.7 % (42-75); PLATELET COUNT 107 X10'3 (140-440); RED BLOOD COUNT 3.22 X10'6 (4.20-5.60); RED CELL DISTRIBUTION WIDTH 16.5 % (11.5-14.5); WHITE BLOOD COUNT 4.8 X10'3 (4.5-11.0)
[2022-05-21 06:07] LABS: ALANINE AMINOTRANSFERASE 15 U/L (12-78); ALBUMIN 1.8 G/DL (3.4-5.0); ALBUMIN/GLOBULIN RATIO 0.6 (1.1-1.5); ALKALINE PHOSPHATASE 117 IU/L (46-116); ANION GAP 6 (8-16); ASPARTATE AMINO TRANSFERASE 34 U/L (10-37); BILIRUBIN,TOTAL 0.7 MG/DL (0.1-1.0); BLOOD UREA NITROGEN 13 MG/DL (7-18); BUN/CREATININE RATIO 11.6 (6.6-38.0); CHLORIDE 108 MMOL/L (99-107); CREATININE 1.12 MG/DL (0.40-0.90); GLUCOSE 181 MG/DL (70-104); MAGNESIUM 1.8 MG/DL (1.5-2.4); POTASSIUM 3.3 MMOL/L (3.5-5.1); SODIUM 138 MMOL/L (135-145); TOTAL CARBON DIOXIDE 24.2 MMOL/L (24-32); TOTAL PROTEIN 4.6 G/DL (6.4-8.2); eGFR 49 ML/MIN
[2022-05-21 06:30] VITALS: BP 125/50
--- NOTE | 2022-05-21 06:30 | NUR ---
Problems reprioritized. Patient report given, questions answered & plan of care reviewed with Jessica MELVIN.
[2022-05-21] MEDS: multivitamins, therapeutics tablet PO SCH (07:40)
[2022-05-21] MEDS: cyanocobalamin 500mcg tablet PO SCH (07:41)
[2022-05-21] MEDS: buPROPion SR 150mg tablet PO SCH (07:41)
[2022-05-21] MEDS: levoTHYROXINE 25mcg tablet PO SCH (07:41)
[2022-05-21] MEDS: losartan 25mg tablet PO SCH (07:41)
[2022-05-21] MEDS: levoTHYROXINE 112mcg tablet PO SCH (07:41)
[2022-05-21] MEDS: gabapentin 300mg capsule PO SCH (07:41)
[2022-05-21] MEDS: clopidogrel 75mg tablet PO SCH (07:41)
[2022-05-21] MEDS: atorvastatin 20mg tablet PO SCH (07:41)
[2022-05-21] MEDS: K and/or MAG REPLACEMENT MC SCH (07:50)
[2022-05-21] MEDS: fluticasone nasal spray 16GM bottle NS SCH (07:51)
[2022-05-21] MEDS: docusate sod 100mg capsule PO SCH (07:51)
[2022-05-21] MEDS: budesonide 0.5mg/2ml UD nebule IH SCH (08:43)
--- NOTE | 2022-05-21 08:43 | NUR ---
Pt. refused morning SVN. BS clear without SOB. Room air Spo2 is 96%
[2022-05-21] MEDS: insulin Lispro (HumaLOG) vial - multi-dose SQ SCH (09:11)
--- NOTE | 2022-05-21 09:11 | NUR ---
Patient refused 3 units of Humalog that was drawn up. She said that she would like to wait and see what her blood sugar level is at the 1200 check.
[2022-05-21 10:49] VITALS: BP 99/75
--- NOTE | 2022-05-21 10:50 | NUR ---
patient c/o "low blood sugar". she refused 0800 humalog. checked her blood glucose level and she was at 200.
--- NOTE | 2022-05-21 12:30 | NUR ---
patient refusing insulin coverage.
[2022-05-21] MEDS ORDERED: HYDR-3965 PO (13:06)
[2022-05-21] MEDS ORDERED: FERR324T4 PO (13:06)
[2022-05-21] MEDS ORDERED: gabapentin capsule PO (13:06)
--- NOTE | 2022-05-21 14:23 | NUR ---
Patient stable and appropriate for discharge home. IV removed, all belongings taken from room. New RX e-scripted to preferred pharmacy. all discharge instructions and education given and reviewed with patient, all questions answered. patient is aware of next due doses on all medications and which medications have been changed/discontinued.
[2022-05-21] MEDS ORDERED: insulin glargine (Lantus) pen - multi-dose SQ SCH ×2 (21:00)
== END 2022-05-21 14:30 | disposition home health service (06) | DRG 92 ==
LOC: ER 16:42 → ED HOLD 05-19 10:28 → SUR 3N 05-19 17:52
PROVIDERS: ADMIT Family Medicine; ATTEND Family Medicine
PROC: BW281ZZ Computerized Tomography (CT Scan) of Head using Low Osmolar Contrast (ICD-10-PCS; principal; 2022-05-19)
DX: G92.8 Other toxic encephalopathy (principal); C78.7 Secondary malignant neoplasm of liver and intrahepatic bile duct; R18.8 Other ascites; E11.9 Type 2 diabetes mellitus without complications; B19.20 Unspecified viral hepatitis C without hepatic coma; D64.9 Anemia, unspecified; Z79.84 Long term (current) use of oral hypoglycemic drugs; Z80.8 Family history of malignant neoplasm of other organs or systems; Z85.528 Personal history of other malignant neoplasm of kidney; Z86.73 Personal history of transient ischemic attack (TIA), and cerebral infarction without residual deficits; Z87.891 Personal history of nicotine dependence; Z90.5 Acquired absence of kidney; Z90.710 Acquired absence of both cervix and uterus; Z98.82 Breast implant status; Z90.49 Acquired absence of other specified parts of digestive tract; Z79.899 Other long term (current) drug therapy; Z79.4 Long term (current) use of insulin; Y92.89 Other specified places as the place of occurrence of the external cause; T42.6X5A Adverse effect of other antiepileptic and sedative-hypnotic drugs, initial encounter; T40.605A Adverse effect of unspecified narcotics, initial encounter
CPT/HCPCS: 36415; 70470; 74176; 80053; 80320; 81001; 82140; 82948; 83036; 83540; 83550; 83605; 83690; 83735; 84145; 84443; 85025; 85651; 87040; 87081; 94640; 94760; 96374; 96375; 97116; 97161; 97530; 99285; G0378; J1200; J1650; J1815; J2270; J2543; J2765; J3490; J7030; Q9967

== ENCOUNTER 2022-07-02 13:07 | Emergency (ER) | payer BC, MEDICAID ==
[~2022-07-02] VITALS: Ht 154.9 cm; Wt 69.1 kg
[~2022-07-02 13:07] MED LIST changes: +FERR324T4 PO; -GABA-338 PO; -HYDR-4353 PO; -INSU100V13 SQ; -LANTUS SUBCUT; -LOPE-190; +gabapentin capsule PO
[2022-07-02 14:00] LABS: BASOPHILS # (AUTO) 0.1 X10'3 (0-0.2); BASOPHILS % (AUTO) 0.8 % (0-1); EOSINOPHILS # (AUTO) 0.3 X10'3 (0-0.9); EOSINOPHILS % (AUTO) 2.4 % (0-6); HEMATOCRIT 39.2 % (35.0-45.0); HEMOGLOBIN 12.7 g/dl (12.0-16.0); LYMPHOCYTES # (AUTO) 1.9 X10'3 (1.1-4.8); LYMPHOCYTES % (AUTO) 18.1 % (21-51); MEAN CORPUSCULAR HEMOGLOBIN 26.6 PG (27.0-31.0); MEAN CORPUSCULAR HGB CONC 32.3 g/dL (33.0-36.5); MEAN CORPUSCULAR VOLUME 82.4 FL (78-98); MEAN PLATELET VOLUME 7.7 FL (7.4-10.4); MONOCYTES # (AUTO) 0.7 X10'3 (0-0.9); NEUTROPHILS # (AUTO) 7.5 X10'3 (1.8-7.7); NEUTROPHILS % (AUTO) 71.7 % (42-75); PLATELET COUNT 164 X10'3 (140-440); RED BLOOD COUNT 4.76 X10'6 (4.20-5.60); RED CELL DISTRIBUTION WIDTH 20.2 % (11.5-14.5); WHITE BLOOD COUNT 10.5 X10'3 (4.5-11.0)
[2022-07-02 14:14] LABS: ALANINE AMINOTRANSFERASE 33 U/L (12-78); ALBUMIN 2.2 G/DL (3.4-5.0); ALBUMIN/GLOBULIN RATIO 0.6 (1.1-1.5); ALKALINE PHOSPHATASE 312 IU/L (46-116); ANION GAP 7 (8-16); ASPARTATE AMINO TRANSFERASE 61 U/L (10-37); BILIRUBIN,TOTAL 1.4 MG/DL (0.1-1.0); BLOOD UREA NITROGEN 11 MG/DL (7-18); CALCIUM 8.9 MG/DL (8.5-10.1); CHLORIDE 105 MMOL/L (99-107); CREATININE 0.92 MG/DL (0.40-0.90); GLUCOSE 247 MG/DL (70-104); LIPASE 60 U/L (73-393); POTASSIUM 3.6 MMOL/L (3.5-5.1); SODIUM 138 MMOL/L (135-145); TOTAL CARBON DIOXIDE 26.5 MMOL/L (24-32); eGFR 61 ML/MIN
[2022-07-02 14:29] LABS: ANISOCYTOSIS 3+; PLATELET ESTIMATE NORMAL
[2022-07-02] MEDS ORDERED: morphine 4 MG/ML inj SYRINge IV ONE (15:35)
[2022-07-02] MEDS ORDERED: LIDOcaine 1% W/epiNEPHrine 1:100,000 20ml vial SQ ONE (15:50)
[2022-07-02] MEDS ORDERED: normal saline 1000ML IV soln IVB ONE (15:55)
[2022-07-02] MEDS ORDERED: LIDOCAINE 1%/EPI 1:100,000 inj. 10 ML multi-dose vial SQ ONE (15:55)
[2022-07-02] MEDS ORDERED: iohexol 300mg/ml 100ml inj. ONE ×2 (16:18→16:38)
[2022-07-02] MEDS ORDERED: HYDROcodone/acetaminophen 10/325mg tab PO ONE (18:10)
[2022-07-02] MEDS ORDERED: HYDROmorphone 1 mg/ml syringe IM ONE (19:10)
[2022-07-02] MEDS ORDERED: PER5325T PO (19:16)
[2022-07-02] MEDS ORDERED: NALO4SPR BOTHNARES (19:16)
[2022-07-02 19:31] VITALS: BP 144/74
== END 2022-07-02 19:33 | disposition home or self-care (01) ==
LOC: ER 13:07
DX: R10.84 Generalized abdominal pain (principal); R60.9 Edema, unspecified; R16.0 Hepatomegaly, not elsewhere classified; Z86.73 Personal history of transient ischemic attack (TIA), and cerebral infarction without residual deficits; Z85.05 Personal history of malignant neoplasm of liver; Z90.49 Acquired absence of other specified parts of digestive tract; Z98.890 Other specified postprocedural states; Z79.899 Other long term (current) drug therapy
CPT/HCPCS: 36415; 74178; 80053; 83690; 85008; 85025; 96372; 96374; 99285; J1170; J2270; J3490; J7030; J7040; Q9967